=== PATIENT | female | born 1975 | race Caucasian/White ===

== ENCOUNTER 2020-04-10 09:52 | Emergency (ER) | payer MEDICAID, SELFPAY ==
[~2020-04-10] VITALS: Ht 154.9 cm; Wt 65.8 kg
[2020-04-10 09:54] VITALS: Ht 154.9 cm; Wt 65.8 kg
[2020-04-10 12:24] VITALS: BP 156/100
== END 2020-04-10 12:24 | disposition home or self-care (01) ==
LOC: ED 09:52
DX: J02.9 Acute pharyngitis, unspecified (principal); Z20.828 Contact with and (suspected) exposure to other viral communicable diseases
CPT/HCPCS: U0003

== ENCOUNTER 2020-05-03 19:44 | Emergency (ER) | payer MEDICAID ==
[~2020-05-03] VITALS: Ht 157.5 cm; Wt 68.9 kg
[2020-05-03 19:54] VITALS: Ht 157.5 cm; Wt 68.9 kg
[2020-05-03 20:32] VITALS: BP 146/87
== END 2020-05-03 20:32 | disposition home or self-care (01) ==
LOC: ED 19:44
DX: M25.511 Pain in right shoulder (principal)
CPT/HCPCS: J1885

== ENCOUNTER 2020-07-13 13:59 | Emergency (ER) | payer SELFPAY ==
[~2020-07-13] VITALS: Ht 157.5 cm; Wt 67.6 kg
[2020-07-13 14:06] VITALS: Ht 157.5 cm; Wt 67.6 kg
[2020-07-13 14:59] LABS: BASOPHIL % 0.1 % (0.2-1.3)
[2020-07-13 15:02] LABS: RED CELL DISTRIBUTION WIDTH 17.4 % (12.3-17.7)
[2020-07-13 15:03] LABS: PLATELET COUNT 596 x10^3mcL (179-408)
[2020-07-13 15:05] LABS: CALCIUM 9.3 mg/dL (8.5-10.1); CARBON DIOXIDE 29.6 mmol/L (21-32); CHLORIDE SERUM 102 mmol/L (98-107); CREATININE SERUM 0.7 mg/dL (0.6-1.0); GFR1 > 60 mL/min; GLUCOSE SERUM 120 mg/dL (74-106); POTASSIUM SERUM 3.6 mmol/L (3.5-5.1); SODIUM SERUM 139 mmol/L (136-145)
[2020-07-13 15:09] LABS: ALBUMIN 3.5 g/dL (3.4-5.0); ALKALINE PHOSPHATASE 71 U/L (46-116); ALT/SGPT 16 U/L (14-59); AST/SGOT 10 U/L (15-37); BILIRUBIN TOTAL 0.3 mg/dL (0.20-1.00); TOTAL PROTEIN, SERUM 7.7 g/dL (6.4-8.2)
[2020-07-13 15:19] LABS: FREE T4 0.9 ng/dL (0.76-1.46); FREE THYROXINE INDEX 2.4 ug/dL (1.4-4.5); T4(THYROXINE) 7.4 ug/dL (4.7-13.3)
[2020-07-13 15:21] LABS: T3 TOTAL 1.29 ng/mL
[2020-07-13 16:25] LABS: AMPHETAMINE QUAL UR POSITIVE (See below)
[2020-07-13 16:45] VITALS: BP 152/97
== END 2020-07-13 16:45 | disposition home or self-care (01) ==
LOC: ED 13:59
PROVIDERS: Emergency Medicine
DX: R00.2 Palpitations (principal); F15.10 Other stimulant abuse, uncomplicated; R07.89 Other chest pain; R42 Dizziness and giddiness; F17.210 Nicotine dependence, cigarettes, uncomplicated; Z98.890 Other specified postprocedural states
CPT/HCPCS: 83880; 84439